=== PATIENT | female | born 1995 | race Caucasian/White ===

== ENCOUNTER 2022-04-28 00:24 | Observation (INO) ==
[~2022-04-28 00:24] MED LIST: Perflutren Lipid Microsphere 1.3 ML in 0.9 % Sodium Chloride 8.7 ML IVP PRN
[2022-04-28 00:28] LABS: Amphetamine Screen,Urine Negative ng/mL (Cutoff=1000); Barbiturate Screen,Urine Negative ng/mL (Cutoff=200); Benzodiazepines Screen,Urine Negative ng/mL (Cutoff=200); Cannabinoid Screen,Urine Negative ng/mL (Cutoff = 50); Cocaine Screen,Urine Negative ng/mL (Cutoff= 300); Opiate Screen,Urine Negative ng/mL (Cutoff=300); Phencyclidine Screen,Urine Negative ng/mL (Cutoff=25)
[2022-04-28 00:41] LABS: Alanine Aminotransferase 6 Units/L (7-52); Albumin 3.7 g/dL (3.5-5.7); Albumin/Globulin Ratio 1.2 (1.1-2.2); Alkaline Phosphatase 74 Units/L (34-104); Aspartate Amino Transferase 15 Units/L (13-39); BUN/Creatinine Ratio 9 (6-26); Bilirubin,Total 0.2 mg/dL (0.3-1.0); Blood Urea Nitrogen 5 mg/dL (6-20); Carbon Dioxide 24 mEq/L (23-29); Chloride 105 mEq/L (98-107); Globulin 3.2 g/dL (2.4-3.5); Glucose 90 mg/dL (70-105); Osmolality,Calculated 279 (280-300); Potassium 3.3 mEq/L (3.5-5.1); Sodium 136 mEq/L (136-145); Total Protein 6.9 g/dL (6.4-8.9); eGFR For African Americans > 60 (> 60); eGFR For Non-African Americans > 60 (> 60)
[2022-04-28 00:54] LABS: Hematocrit 32.2 % (35.3-44.9); Hemoglobin 10.4 g/dL (11.5-15.4); Mean Corpuscular HGB Conc 32.3 g/dL (31.6-35.5); Mean Corpuscular Hemoglobin 28.2 pg (28.0-33.3); Mean Corpuscular Volume 87.3 fL (83.0-100.0); Mean Platelet Volume 12.8 fL (9.4-12.4); Platelet Count 131 K/mcL (140-400); Red Blood Count 3.69 M/mcL (3.82-4.97); Red Cell Distribution Width 13.7 % (11.5-14.5); Thyroid Stimulating Hormone 3.546 mcIU/mL (0.340-5.600); White Blood Count 9.7 K/mcL (4.3-11.1)
[2022-04-28] MEDS ORDERED: Potassium Chloride Elixir 20 MEQ/15 ML UDC PO PRN (01:54)
[2022-04-28 04:42] VITALS: O2SAT 99
[2022-04-28 12:17] VITALS: BP 121/78; PULSE 92; TEMP 98
== END 2022-04-28 13:29 | disposition home or self-care (01) ==
LOC: 1NENULAB → 1NENUOBS 00:24
PROVIDERS: ADMIT Advanced Practice Midwife; ATTEND Advanced Practice Midwife